=== PATIENT | male | born 1950 | race Caucasian/White ===

== ENCOUNTER 2017-08-08 10:09 | Day surgery (SDC) | payer MEDICARE ==
[~2017-08-08] VITALS: Ht 182.9 cm; Wt 77.0 kg
[2017-08-08] VITALS (13 sets, daily range): BP systolic 117–176; BP diastolic 67–96; PULSE 56–88; RESP 16–19; TEMP 97.6–98.8; O2SAT 96–100
[~2017-08-08 10:09] MED LIST: AMAR2TAB PO; CARD120C4 PO; FERR324T4 PO; HYDR-2768 PO; LANTUSP SQ; LIPI40TA PO; METO50TA PO; NOVOLOGP2 SQ; PRIN20TA2 PO
[2017-08-08] MEDS ORDERED: IOHEXOL 350 MG/ML 100 ML BTL (for Cath Lab) OTHER ONE (10:10)
[2017-08-08] MEDS ORDERED: SODIUM CHLOR 0.9% 1000 ML INJ 1,000 ML IV SCH (11:00)
[2017-08-08] MEDS ORDERED: LANTUS2P SQ (11:02)
[2017-08-08] MEDS ORDERED: METO25TA3 PO (11:02)
[2017-08-08] MEDS ORDERED: POTA10CA PO (11:02)
[2017-08-08 11:08] LABS: AUTOMATED NEUTROPHIL # 9.5 TH/MM3 (1.8-7.7); BASOPHIL # 0.1 TH/MM3 (0-0.2); BASOPHIL % 1.1 % (0.0-2.0); EOSINOPHIL # 0.2 TH/MM3 (0-0.4); EOSINOPHIL % 1.8 % (0.0-4.0); HEMATOCRIT 37.1 % (39.0-51.0); HEMOGLOBIN 12.8 GM/DL (13.0-17.0); LYMPH % 7.7 % (9.0-44.0); LYMPHOCYTE # 0.9 TH/MM3 (1.0-4.8); MEAN CELL VOLUME 95.4 FL (80.0-100.0); MEAN CORPUSCULAR HEMOGLOBIN 32.9 PG (27.0-34.0); MEAN CORPUSCULAR HGB CONC 34.5 % (32.0-36.0); MEAN PLATELET VOLUME 7.9 FL (7.0-11.0); MONO % 5.8 % (0.0-8.0); MONOCYTE # 0.7 TH/MM3 (0-0.9); NEUT % 83.6 % (16.0-70.0); PLATELET COUNT 250 TH/MM3 (150-450); RED BLOOD COUNT 3.89 MIL/MM3 (4.50-5.90); RED CELL DISTRIBUTION WIDTH 13.2 % (11.6-17.2); WHITE BLOOD COUNT 11.4 TH/MM3 (4.0-11.0)
[2017-08-08 11:16] LABS: PROTHROMBIN TIME - PATIENT 9.9 SEC (9.8-11.6)
[2017-08-08 11:23] LABS: BICARBONATE 28.3 MEQ/L (21.0-32.0); CALCIUM 8.9 MG/DL (8.5-10.1); CREATININE 8.72 MG/DL (0.60-1.30)
[2017-08-08] MEDS ORDERED: HEPARIN-NS/PF FLUSH BAG 2,000 ML IV FLUSH ONE (12:41)
[2017-08-08] MEDS ORDERED: MIDAZOLAM HCL 2 MG/2 ML VIAL ONE (13:14)
[2017-08-08] MEDS ORDERED: ASPIRIN 325 MG TAB ONE (14:57)
[2017-08-08] MEDS ORDERED: TICAGRELOR 90 MG TAB PO ONE (14:57)
[2017-08-08] MEDS ORDERED: oxyCODONE/ACETAMINOPHEN 5 MG/325 MG TAB PO PRN (15:30)
[2017-08-08] MEDS ORDERED: oxyCODONE/ACETAMINOPHEN 10 MG/325 MG TAB PO PRN (15:30)
[2017-08-08] MEDS ORDERED: ACETAMINOPHEN 325 MG TAB PO PRN (15:30)
[2017-08-08] MEDS ORDERED: MORPHINE SULFATE 4 MG/ML INJ IV PUSH PRN (15:30)
[2017-08-08] MEDS ORDERED: MISC INFORMATION XX ONE (15:30)
--- NOTE | 2017-08-08 15:31 | CATHPROC ---
Global Locate HIS Report Study Information Study Number Admission Scheduled Start Study Start [id number] Aug 08 2017 10:09AM 08/08/2017 Aug 08 2017 12:46PM Study Type Boyd Service Left and Right Heart Cath Cardiac Catheterization Admit Source Facility Department Other [facility] [place] Physician and Clinical Staff Initial Aditya Hilario Osteopathic Physician José Miguel Otoole RN Osteopathic PhysicianAndrade Haley RN Osteopathic Physician Jerica Sal RN Recorder Fartun Wright,SHANITA TECH2 Scrub Ximena Esteban,RT(R) Procedures Performed Procedure Location (Site) Vessel Name Coronary Angiograms LCA Left Coronary Coronary Angiograms RCA Right Coronary Drug Eluting Inflatio LAD Mid Left Coronary Drug Eluting Inflatio LAD Prox Left Coronary PTCA LAD Mid Left Coronary PTCA LAD Prox Left Coronary Wire insertion Fem Art (right) Femoral Art Equipment Time Cloth Tester Quality Description Size Mfg Part Number Used/Scraped [id number] 12:55 [employer] SWAN JOSEPHINE CATHETER FR 7 Used *[id number] TRANSDUCER, TRUWAVE [id number] 12:55 [employer] * Used W/STOCKCOCK *[id number] TRANSDUCER, TRUWAVE [id number] 12:55 [employer] * Used W/STOCKCOCK *[id number] INTRODUCER SET, 12:55 [employer] FR 5 [id number] *[id number] Used MICROPUNCTURE STIFF [phone] *[id number] 12:55 [employer] PACK, CCL CUSTOM * Used *[id number] 14:20 MEDTRONIC BALLOON, 2.0 X 10MM EUPHORA 10MM Used *[id number] BALLOON, 2.25 X 8MM NC [id number] 14:39 MEDTRONIC 8MM Used EUPHORA *[id number] 13:43 MEDTRONIC JL 4.0 DXTERITY CATHETER FR 5 Used *[id number] 14:30 [employer] STENT, 2.25 12MM ALYSHA 2.25 12MM Used *8858582 [id number] 14:34 [employer] STENT, 2.25 12MM ALYSHA 2.25 12MM Used *[id number] 13:53 MEDTR[employer]IC/AVE EBU 3.5 Z2 GUIDE CATHETER FR 6 Used *[id number] 14:23 [employer]ICAL 30 JOSE INDEFLATOR Used *[id number] 12:55 [employer] WIRE, 3MMJ .035 180CM 180CM Used *[id number] [id number] 12:55 NAMIC MANIFOLD, 4 PORT * Used *[id number] 12:55 [employer]COMED OMNIPAQUE, 350 MG, 150ML 150ML [id number] Used 14:44 [employer]COMED OMNIPAQUE, 350 MG, 150ML 150ML [id number] Used 14:44 [employer]COMED OMNIPAQUE, 350 MG, 150ML 150ML [id number] Used 14:44 NYCOMED OMNIPAQUE, 350 MG, 150ML 150ML [id number] Used [id number] 12:55 [facility] BLANKET,WARM AIR CCL * Used *[id number] [id number] 12:55 TERUMO MEDICAL SHEATH, FR5 TERUMO (10CM) FR 5 Used *[id number] [id number] 13:54 [employer] MEDICAL SHEATH, FR6 TERUMO (10CM) FR 6 Used *[id number] 12:55 TERUMO MEDICAL SHEATH, FR7 TERUMO (10CM) FR 7 Used *[id number] 13:57 [employer] PRIME WIRE, VERRATA 185CM 185CM 60199 *[id number] Used Equipment Model, Serial, Lot Number and Expiration Data Description Model Number Serial Number Lot Number Expiration Date JL 4.0 DXTERITY CATHETER [id number] 05-23-2020 PRIME WIRE, VERRATA 185CM [id number] 07-11-2020 STENT, 2.25 12MM ALYSHA [id number] 03-29-2019 STENT, 2.25 12MM ALYSHA [id number] 04-02-2019 History: Current Medications Medication Dosage/Unit Route Frequency Last Date/Time Taken 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 K-Dur LANTUS History: Risk Factors Family History of Hypertension Dyslipidemia Previous CT Previous Heart Failure Premature CAD Yes Yes No No Yes Prior Valve Prior PCI Prior CABG Surgery No No No Cerebrovascular Peripheral Artery Chronic Lung On Dialysis Diabetes Diabetes Therapy Disease Disease Disease Yes No No No Yes Insulin History: Stress Tests Stress or Imaging Studies Performed Yes Standard Exercise Stress Test No Stress Echo No Stress Test SPECT Stress Test SPECT Result Stress Test SPECT Ischemia Risk/Extent Yes Positive Intermediate Stress Test CMR No Cardiac CTA Coronary Calcium Score No No History: Other Current Smoker Method Quit No Cigarettes 12 Years Ago Labs Hgb (g/dl) Hct (%) WBC (l/cumm) Platelets (thousands) 11.60-17.00 35.00-51.00 4.00-11.00 150.00-450.00 12.8 37.1 11.4 250 Glucose (mg/dl) BUN (mg/dl) Creatinine (mg/dl) BUN:Creatinine (1:x) 74.00-106.00 7.00-18.00 0.50-1.30 10.00-20.00 154 24 8.7 2.8 Na (meq/l) K (meq/l) Cl (meq/l) Ca (mg/dl) 136.00-145.00 3.50-5.10 98.00-107.00 8.50-10.10 136 3.2 28.3 8.9 PT (sec) INR (PTT:PT) 9.80-11.60 0.90-1.10 9.9 1 CPK-MB (ng/ML) 0.50-3.60 Not Drawn Medication Medication Total Dose (Bolus/Oral) Medication Total Dosage/Unit 1% XYLOCAINE 20 mL FENTANYL 50 mcg HEPARIN 5200 units NTG (IC) 200 mcg Medications (Bolus/Oral) Medication Time Given Dosage/Unit Administered By Reason FENTANYL 08/08/2017 1:21:31 PM 50 mcg Fartun Wright 50 mcg FENTANYL given in lab by Fartun Wright INTELLIGENCE OFFICER TECH2 in Right Antecubital via Peripheral IV. Orde red by Aditya Wright 1% XYLOCAINE 08/08/2017 1:22:30 PM 20 mL Aditya Wright 20 mL 1% XYLOCAINE given in lab by Aditya Wright in Right Groin via Subcutaneous. Ordered by Aditya Felix HEPARIN 08/08/2017 1:55:02 PM 5200 units Aditya Wright 5200 units HEPARIN given in lab by Aditya Wright in Left Antecubital via Peripheral IV. Ordered by Aditya Wright NTG (IC) 08/08/2017 2:47:26 PM 200 mcg Aditya Wright 200 mcg NTG (IC) given in lab by Aditya Wright via Intra-coronary. Ordered by Aditya Wright Medication (Drip) Medication Time Given Dosage/Unit Concentration/Unit Diluent (ml) Solution IV Solutions 08/08/2017 12:55:27 PM 0 mL (IV) 500 NaCl .9 Patient arrived on IV Solutions in Left Antecubital via Peripheral IV. Pump/Drip Flow = 20 ml/hr chris carter NaCl .9. Initial Case Assessment Cardiovascular HR Rhythm NIBP Chest Pain 60 sr/pac's 170/97 0 Circulatory - Right Pulses Dorsalis Pedis Femoral 1 3 Scale (0,1,2,3,4,d) Circulatory - Left Pulses Dorsalis Pedis Femoral 1 3 Scale (0,1,2,3,4,d) Neurological State Oriented to time-place- Alert Moves all extremities person Respiration - General Respiration Rate SpO2 (%) (B/min) 18 99 Final Case Assessment Cardiovascular HR Rhythm NIBP Chest Pain 60 sr/pac's 170/97 0 Circulatory - Right Pulses Dorsalis Pedis Femoral 1 3 Scale (0,1,2,3,4,d) Circulatory - Left Pulses Dorsalis Pedis Femoral 1 3 Scale (0,1,2,3,4,d) Neurological State Oriented to time-place- Alert Moves all extremities person Respiration - General Respiration Rate SpO2 (%) (B/min) 18 99 Chronological Log Time Study Chronological Log 12:51:52 Patient arrived via Bed. 12:51:58 Patient Name, D.O.B, / Armband Verified By R.N. 12:54:03 Consent signed by the physician and the patient and verified by the [place] staff. 12:54:04 Pre-op and post- op instructions given; patient acknowledges understanding of instructions. 12:54:05 Verbal Stimulation=2 Physical Stimulation=2 Airway=2 Respiration=2 TOTAL=8. (0=absent, 1=li mited, 2=present) 12:54:06 Presedation assessment performed by [place] RN. 12:54:09 Patient has been NPO for More than 6Hrs. 12:54:11 Skin Breakdown-none 12:54:12 Sergio Prominences Protected 12:54:15 A # 20 IV was noted in the Antecubital (left). Grade = patent 12:55:27 Patient arrived on IV Solutions in Left Antecubital via Peripheral IV. Pump/Drip Flow = 20 ml/hr using NaCl .9. Vitals capture started with the following parameters, Patient=Adult, Interval=5 min, Initial Pr aqlrmm=846 mmHg, 13:11:20 Deflation Rate=5 mmHg, Cuff placed on Unknown 13::58 History and physical on the chart or being dictated. Assessment: Initial Case, HR=60 BPM, Rhythm=sr/pac's, VQQN=741/97 mmhg, Chest Pain=0 Right Pulses: Joshua Ped=1, Femoral=3 13:11:58 Left Pulses: Joshua Ped=1, Femoral=3 Neurological: State=Alert, Ox3, WALLER Respiration: Resp=18 B/min, SpO2=99 % 13:12:06 Bilateral groins prepped with 2% chlorhexidine, and draped after a 3 minute waiting time. 13:12:12 MD paged 13:12:44 HR=60 bpm, ENKR=420/97 mmhg, SpO2=99.0 %, Resp=18 B/min 13:13:07 Reference ECG taken 13:15:25 Pressure channel 1 zeroed. 13:15:29 MD arrived. 13:17:00 HR=61 bpm, QHIA=553/94 mmhg, SpO2=99.0 %, Resp=16 B/min Time Out. Correct patient, correct procedure, correct physician, power injector not loaded with contrast with surgical 13:20:30 team present. Time Out Concurred by MD and individual staff in procedure. 50 mcg FENTANYL given in lab by Fartun Wright RCIS TECH2 in Right Antecubital via Peripheral IV . Ordered by Kyle 13::31 Aditya Calderon ::28 Case Start 20 mL 1% XYLOCAINE given in lab by Aditya Wright in Right Groin via Subcutaneous. Ordered by Kyle, :30 Aditya Calderon 13:22:47 HR=62 bpm, PIHZ=937/88 mmhg, SpO2=98.0 %, Resp=15 B/min 13:27:01 HR=60 bpm, KQMK=998/91 mmhg, SpO2=98.0 %, Resp=12 B/min 13:28:02 Access site was Right Femoral Artery. A INTRODUCER SET, MICROPUNCTURE STIFF FR 5 was advanced into the Fem Art (right) using the Perc utaneous 13:28:24 technique. A SHEATH, FR5 TERUMO (10CM) FR 5 was exchanged in the Fem Art (right). This was necessary in or richy to 13:28:40 accomodate a larger catheter. 13:29:46 Access site was Right Femoral Vein. A INTRODUCER SET, MICROPUNCTURE STIFF FR 5 was advanced into the Fem Vein (right) using the Per cutaneous 13:29:51 technique. A SHEATH, FR7 TERUMO (10CM) FR 7 was exchanged in the Fem Vein (right). This was necessary in o rder to 13:30:08 accomodate a larger catheter. 13:31:21 An injection in the Fem Art (right) was made through the SHEATH, FR5 TERUMO (10CM) FR 5. 13:31:58 HR=67 bpm, DGZR=940/91 mmhg, SpO2=99.0 %, Resp=12 B/min 13:32:04 A SWAN JOSEPHINE CATHETER FR 7 was inserted via Fem Vein (right) Recorded Pressure: PCW, HR=62, Condition=Condition 1 13:33:54 (Pulmonary Capillary Wedge) PCW Recorded Pressure: MPA, HR=70, Condition=Condition 1 13:35:12 (Main Pulmonary Artery) MPA 13:35:34 Saturation: Site=PA (Pulmonary Artery) , O2=66.6 %, Hgb=12.8 gm/dl, Condition=Condition 1. Used in calculation. 13:36:11 Saturation: Site=Ao (Aorta) , O2=96.9 %, Hgb=12.8 gm/dl, Condition=Condition 1. Used in dar culation. Recorded Pressure: RV, HR=73, Condition=Condition 1 13:36:38 (Right Ventricle) RV 13:36:57 HR=60 bpm, PXGA=718/93 mmhg, SpO2=98.0 %, Resp=13 B/min Recorded Pressure: RA, HR=70, Condition=Condition 1 13:37:08 (Right Atrium) RA 13:37:24 Rush Josephine Catheter Removed A JR 4.0 INFINITI CATHETER FR 5 was advanced over a wire. OMNIPAQUE, 350 MG, 150ML 150ML was us ed for 13:39:31 injections. Recorded Pressure: LV, HR=69, Condition=Condition 1 13:39:49 (Left Ventricle) LV 198/7/13 Recorded Pressure: LV, Ao, HR=59, Condition=Condition 1 13:40:13 (Left Ventricle) LV 184/2/9, (Aorta) Ao 181/58/111 13:42:00 HR=62 bpm, CFON=017/90 mmhg, SpO2=99.0 %, Resp=15 B/min 13:42:37 The RCA was injected and visualized at various angles. OMNIPAQUE, 350 MG, 150ML 150ML used . After removing the current catheter a JL 4.0 DXTERITY CATHETER FR 5 was advanced over a WIRE, 3 MMJ .035 180CM 13:43:12 180CM. 13:45:21 The LCA was injected and visualized at various angles. OMNIPAQUE, 350 MG, 150ML 150ML used . 13:47:05 HR=76 bpm, PZKE=200/83 mmhg, SpO2=99.0 %, Resp=14 B/min 13:52:02 HR=75 bpm, RVBL=819/91 mmhg, SpO2=98.0 %, Resp=16 B/min 13:53:10 Catheter was removed 5200 units HEPARIN given in lab by Aditya Wright in Left Antecubital via Peripheral IV. O rdered by Kyle 13:55:02 Aditya Carter. A SHEATH, FR6 TERUMO (10CM) FR 6 was exchanged in the Fem Art (right). This was necessary in or richy to 13:55:18 accomodate a larger catheter. A EBU 3.5 Z2 GUIDE CATHETER FR 6 was advanced over a wire. OMNIPAQUE, 350 MG, 150ML 150ML was u sed for 13:56:32 injections. 13:57:03 HR=75 bpm, OQYT=036/82 mmhg, SpO2=98.0 %, Resp=19 B/min 14:02:04 HR=67 bpm, HXGC=655/88 mmhg, SpO2=98.0 %, Resp=16 B/min 14:02:09 A PRIME WIRE, VERRATA 185CM 185CM was inserted via Fem Art (right). 14:07:01 HR=70 bpm, ZTSA=180/91 mmhg, SpO2=98.0 %, Resp=17 B/min 14:12:06 HR=77 bpm, RLVD=930/83 mmhg, SpO2=98.0 %, Resp=13 B/min 14:12:44 Flow Wire was was placed in the LAD Mid. The IFR measures 0.65 Percent. 14:17:05 HR=67 bpm, THAH=799/88 mmhg, SpO2=98.0 %, Resp=10 B/min 14:17:19 Activated Clotting Time Drawn 14:21:29 A BALLOON, 2.0 X 10MM EUPHORA 10MM was inserted over PRIME WIRE, VERRATA 185CM 185CM via th e LAD Mid. 14:22:04 HR=68 bpm, GFKF=100/90 mmhg, SpO2=97.0 %, Resp=16 B/min A BALLOON, 2.0 X 10MM EUPHORA 10MM over a PRIME WIRE, VERRATA 185CM 185CM in the LAD Mid was in flated 14:22:48 using a 30 JOSE INDEFLATOR at 14 jose for 30 sec. 14:23:14 ACT (Normal Range 90-180) = 324 A BALLOON, 2.0 X 10MM EUPHORA 10MM over a PRIME WIRE, VERRATA 185CM 185CM in the LAD Mid was in flated 14:25:17 using a 30 JOSE INDEFLATOR at 12 jose for 25 sec. 14:25:57 Balloon Removed. 14:27:05 HR=66 bpm, NIWO=099/95 mmhg, SpO2=97.0 %, Resp=17 B/min A STENT, 2.25 12MM ALYSHA 2.25 12MM was advanced through a EBU 3.5 Z2 GUIDE CATHETER FR 6 over a PRIME 14:29:21 WIRE, VERRATA 185CM 185CM. 14:32:08 HR=73 bpm, KBZB=388/82 mmhg, SpO2=97.0 %, Resp=18 B/min A STENT, 2.25 12MM ALYSHA 2.25 12MM was deployed using a 30 JOSE INDEFLATOR at 14 atmospheres for 30 seconds 14:32:15 in the LAD Mid. 14:33:48 Delivery device removed A STENT, 2.25 12MM ALYSHA 2.25 12MM was advanced through a EBU 3.5 Z2 GUIDE CATHETER FR 6 over a PRIME 14:34:39 WIRE, VERRATA 185CM 185CM. A STENT, 2.25 12MM ALYSHA 2.25 12MM was deployed using a 30 JOSE INDEFLATOR at 14 atmospheres for 30 seconds 14:36:21 in the LAD Prox. 14:37:05 HR=72 bpm, GSOM=671/80 mmhg, SpO2=97.0 %, Resp=17 B/min 14:38:11 Delivery device removed 14:38:21 A BALLOON, 2.25 X 8MM NC EUPHORA 8MM was inserted over PRIME WIRE, VERRATA 185CM 185CM via the LAD Mid. 14:38:29 Patient complaining of chest pain 5 14:42:37 HR=71 bpm, AKOV=800/91 mmhg, SpO2=95.0 %, Resp=17 B/min A BALLOON, 2.25 X 8MM NC EUPHORA 8MM over a PRIME WIRE, VERRATA 185CM 185CM in the LAD Mid was inflated 14:43:40 using a 30 JOSE INDEFLATOR at 12 jose for 10 sec. A BALLOON, 2.25 X 8MM NC EUPHORA 8MM over a PRIME WIRE, VERRATA 185CM 185CM in the LAD Mid was inflated 14:44:32 using a 30 JOSE INDEFLATOR at 18 jose for 20 sec. A BALLOON, 2.25 X 8MM NC EUPHORA 8MM over a PRIME WIRE, VERRATA 185CM 185CM in the LAD Prox was inflated 14:45:27 using a 30 JOSE INDEFLATOR at 20 jose for 20 sec. A BALLOON, 2.25 X 8MM NC EUPHORA 8MM over a PRIME WIRE, VERRATA 185CM 185CM in the LAD Prox was inflated 14:46:08 using a 30 JOSE INDEFLATOR at 20 jose for 15 sec. 14:46:34 Balloon Removed. 14:47:05 HR=71 bpm, TWTL=647/86 mmhg, SpO2=96.0 %, Resp=17 B/min 14:47:26 200 mcg NTG (IC) given in lab by Aditya Wright via Intra-coronary. Ordered by Aditya Felix. 14:50:38 Wire removed 14:51:02 Catheter was removed 14:51:44 Case End 14:52:04 HR=85 bpm, DDZL=585/77 mmhg, SpO2=95.0 %, Resp=13 B/min Assessment: Final Case, HR=60 BPM, Rhythm=sr/pac's, BMPQ=340/97 mmhg, Chest Pain=0 Right Pulses: Joshua Ped=1, Femoral=3 14:52:08 Left Pulses: Joshua Ped=1, Femoral=3 Neurological: State=Alert, Ox3, WALLER Respiration: Resp=18 B/min, SpO2=99 % 14:52:24 Catheter(s) removed without difficulty 14:52:26 In the Fem Art (right) the SHEATH, FR6 TERUMO (10CM) FR [address] by Shelby Esteban RT(R). 14:52:31 No case complications noted. 14:52:32 Cine recording checked. 14:52:34 Bedside Report will be given. 14:52:37 Implantable Device card placed in patient's chart. 14:52:41 In the Fem Vein (right) the SHEATH, FR7 TERUMO (10CM) FR [address] by Ximena Esteban RT(R). 14:52:58 A Left and Right Heart Cath was performed. 14:54:30 Sterile dressing applied to site 14:56:57 VEYQ=730/88 mmhg, SpO2=95.0 % 14:58:38 Patient voiced chest pain subsided 15:02:38 Patient moved to BED 15:03:55 Patient transported to [facility] End Study - Contrast Media Used In Study Contrast Total Opened (mL) Total Used (mL) Total Wasted (mL) Omnipaque 275 275 0 End Study - Maximum Contrast Load Max Contrast Load (mL) 43.5 End Study - Radiation Exposure Fluoro Time (minutes) 19.8 End Study - Patient Disposition Complications Transferred To Interventional Outcome No Telemetry Bed successful
[2017-08-08] MEDS ORDERED: hydrALAZINE HCL 20 MG/ML VIAL IV PRN (16:30)
[2017-08-08] MEDS ORDERED: SODIUM CHLORIDE 0.9% FLUSH 10 ML FLUSH IV FLUSH PRN (17:30)
[2017-08-08] MEDS ORDERED: HEPARIN SODIUM - IV 10,000 UNITS/10 ML VIAL XX PRN (17:30)
[2017-08-08] MEDS ORDERED: LABETALOL HCL 100 MG/20 ML VIAL IV ONE (17:30)
[2017-08-08] MEDS ORDERED: POTASSIUM CHLORIDE 20 MEQ CONTROLLED RELEASE TAB PO ONE (18:45)
[2017-08-08] MEDS ORDERED: hydrALAZINE HCL 20 MG/ML VIAL IV ONE (19:15)
--- NOTE | 2017-08-08 20:03 | MB ---
cc: Neymar Thomas MD, Abdul Q MD DATE: 08/08/2017 REASON FOR CONSULTATION: End-stage renal disease on peritoneal dialysis for management. HISTORY OF PRESENT ILLNESS: This is a 67-year-old male with a past medical history of end-stage renal disease on peritoneal dialysis for the last [address] Fernandes with a history of ischemic heart disease, diabetes mellitus, hypertension, chronic anemia, hyperlipidemia who was admitted with abnormal stress test. I was called to see the patient for the management of dialysis. He has been on peritoneal dialysis for the last 4 years. He has been following with Dr. Lucio and he had his peritoneal dialysis done last night and came as an outpatient for cardiac cath after an abnormal stress test. The patient had procedure done and he was kept overnight here for observation. The patient denies any shortness of breath or chest pain. He is feeling hungry and wants to eat. No abdominal pain. No history of diarrhea. Denies any cloudiness of his fluid. There is no history of constipation. PAST MEDICAL HISTORY: Hypertension, diabetes mellitus, ischemic heart disease, chronic anemia, peripheral neuropathy, hyperlipidemia, end-stage renal disease on peritoneal dialysis. PAST SURGICAL HISTORY: History of PD catheter placement, laser eye surgery, tonsillectomy. REVIEW OF SYSTEMS: Denies any dizziness or blurring of vision. He has no shortness of breath, no chest pain, no palpitations, no nausea or vomiting. No abdominal pain. No history of diarrhea. SOCIAL HISTORY: The patient has a history of smoking, smoked for 30-40 years. There is no history of heavy alcoholism. FAMILY HISTORY: Positive for cardiac disease and stroke on the father's side. ALLERGIES: NO KNOWN ALLERGIES. MEDICATIONS: Currently, he is on: 1. Brilinta 90 mg b.i.d. 2. Aspirin 81 mg once a day. 3. Lopressor 25 mg daily. 4. Lipitor 40 mg at bedtime. 5. Insulin Detemir 20 units subcu at bedtime. 6. Percocet 5/325 as needed. 7. Hydralazine p.r.n. 10 mg q. 6 hours. PHYSICAL EXAMINATION: GENERAL: The patient is awake and alert. He is not in acute distress. VITAL SIGNS: Last blood pressure is 173/96, temperature is 97.6, oxygen saturation is 97% on room air. HEENT: Pupils are mid constricted. Nonicteric sclerae. Conjunctivae are pale. NECK: Supple. JVD is not elevated. LUNGS: Bilateral good air entry with occasional wheezing. HEART: S1, S2. Regular rhythm. ABDOMEN: Distended, soft, lax . EXTREMITIES: He has mild pedal edema. LABORATORY DATA: WBC count is 8.4, hemoglobin 10.8, platelet count of 215, neutrophils 83.6%. Sodium 136, potassium 3.2, chloride 99, bicarb 28.3, BUN 24, creatinine was 8.7, glucose 154. is 8.9. INR 1.0. IMAGING STUDIES: The patient had no recent imaging studies done. ASSESSMENT AND PLAN: 1. Ischemic heart disease post cardiac catheterization. 2. End-stage renal disease on peritoneal dialysis. 3. Hypertension. 4. Diabetes mellitus. 5. History of anemia. 6. Hyperlipidemia. The patient has been on peritoneal dialysis. He has been doing his dialysis regularly and he had done it last night. His potassium is 3.2. I will give him 1 dose by mouth and we need to resume the peritoneal dialysis but the patient is refusing. He wants to do it by himself when he goes home tomorrow. He was told by the belt weaver that possibly he will be discharged in the morning. He is not in fluid overload status and potassium is on the lower side, so there is no acute urgent indication to dialyze tonight. I discussed with the patient that he can hook himself while he is here. He feels tired and he does not want any other nurse to do it and he is requesting to hold it for tonight. Medically, there is no urgent need for dialysis so we can hold it for tonight and he can resume when he goes back tomorrow to his home. Thank you for the consultation. I will follow the patient while he is in the hospital. MD GEORGIA Bustos//fausto , 06:23 PM , 07:02 PM
[2017-08-08] MEDS ORDERED: INSULIN DETEMIR 100 UNITS/ML VIAL SQ SCH (21:00)
[2017-08-08] MEDS ORDERED: ATORVASTATIN 10 MG TAB PO SCH (21:00)
[2017-08-09] VITALS (12 sets, daily range): BP systolic 133–166; BP diastolic 71–86; PULSE 55–108; RESP 16–18; TEMP 97.7–98.5; O2SAT 97–99
[2017-08-09 06:34] LABS: AUTOMATED NEUTROPHIL # 7.9 TH/MM3 (1.8-7.7); BASOPHIL # 0.1 TH/MM3 (0-0.2); BASOPHIL % 1.1 % (0.0-2.0); EOSINOPHIL # 0.2 TH/MM3 (0-0.4); EOSINOPHIL % 1.7 % (0.0-4.0); HEMATOCRIT 28.7 % (39.0-51.0); HEMOGLOBIN 10.3 GM/DL (13.0-17.0); LYMPH % 6.7 % (9.0-44.0); LYMPHOCYTE # 0.6 TH/MM3 (1.0-4.8); MEAN CELL VOLUME 95.2 FL (80.0-100.0); MEAN CORPUSCULAR HEMOGLOBIN 34.1 PG (27.0-34.0); MEAN CORPUSCULAR HGB CONC 35.8 % (32.0-36.0); MEAN PLATELET VOLUME 7.8 FL (7.0-11.0); MONO % 6.1 % (0.0-8.0); MONOCYTE # 0.6 TH/MM3 (0-0.9); NEUT % 84.4 % (16.0-70.0); PLATELET COUNT 174 TH/MM3 (150-450); RED BLOOD COUNT 3.02 MIL/MM3 (4.50-5.90); RED CELL DISTRIBUTION WIDTH 13.4 % (11.6-17.2); WHITE BLOOD COUNT 9.3 TH/MM3 (4.0-11.0)
[2017-08-09 07:23] LABS: BICARBONATE 26.7 MEQ/L (21.0-32.0); CALCIUM 7.7 MG/DL (8.5-10.1); CREATININE 9.96 MG/DL (0.60-1.30)
[2017-08-09] MEDS ORDERED: ASPIRIN 81 MG CHEW TAB PO SCH (09:00)
[2017-08-09] MEDS ORDERED: TICAGRELOR 90 MG TAB PO SCH (09:00)
[2017-08-09] MEDS ORDERED: METOPROLOL TARTRATE 25 MG TAB PO SCH (09:00)
--- NOTE | 2017-08-09 09:16 | MA ---
cc: Aditya Wright DO DATE: 08/08/2017 PROCEDURE PERFORMED: Left heart catheterization, right heart catheterization, coronary angiogram, IFR LAD, Jan drug-eluting stent x 2 (2.25 x 12, 2.25 x 12) to the proximal and mid LAD. PREPROCEDURE DIAGNOSIS: Abnormal stress test for kidney transplant. POSTPROCEDURE DIAGNOSIS: Coronary artery disease, status post Jan drug-eluting stent x 2 (2.25 x 12, 2.25 x 12) to the mid and proximal left anterior descending. MEDICATIONS: Fentanyl 50 mcg, heparin 5200 units, nitroglycerine 200 mcg, aspirin 325 mg, Brilinta 180 mg. CONTRAST USED: 275 mL. FLUOROSCOPY: 19.8 minutes. MODERATE SEDATION: 0 minutes. ESTIMATED BLOOD LOSS: 10 mL. PROCEDURAL SUMMARY: Tony Keen is a pleasant 67-year-old male who sees my partner, Dr. Rehman, in the office and underwent stress testing for consideration of kidney transplant. This was found to be abnormal and so he was recommended cardiac catheterization. Risks, benefits and alternatives were explained to him and he consented as such. He was brought to the lab and prepped in the usual sterile fashion. The right femoral artery was accessed using a modified Seldinger technique and placement of a 5-Belgian sheath. Right femoral vein was accessed using a modified Seldinger technique and placement of a 7-Belgian sheath. Both were easily aspirated and flushed. A Alviso-Jessica catheter was advanced to a wedge position and oxygen saturations as well as pressures were done in a standard fashion upon pullback throughout the heart. Alviso-Jessica catheter was removed. A JR4 was advanced over a J-wire to the ascending aorta and across the aortic valve for measurement of left ventricular pressure. This was pulled back across the aortic valve, showing no significant gradient of aortic stenosis. JR4 was used for selective angiography of the right coronary artery system. This is exchanged out for a JL4, which was used for selective angiography of the left coronary artery system. Please see notes below for intervention. FINDINGS: Left main normal size vessel with 10% disease. It bifurcates into an LAD and circumflex. LAD overall small to moderate sized vessel. It is diffusely diseased with a 60-70% lesion in the proximal and mid portion. It gives off one diagonal, which is overall small at around 1.5 mm, with an 80% lesion in the mid portion. Left circumflex normal size vessel with 20% disease throughout the proximal and mid portion. It gives off 2 obtuse marginals, the first one being large, with no significant disease and the second one being small at around 1.5 mm, with a 50% lesion noted. RCA 100% occluded in the mid portion. Distally, the RCA is supplied by collaterals from the left coronary artery system. HEMODYNAMICS: RA 7. RV 33/5, RV EDP 7. PA 27/13, mean PA 19. Wedge 13. LVEDP 9. Cardiac output 4.7. Cardiac index 2.4. INTERVENTION: Because of the significance of disease noted in the LAD, I felt that this needed to be further investigated and this may be why he has ischemia in the inferior portion, as this does supply significant collaterals to that area. An EBU 3.5 guide was engaged in the left main. The patient was given heparin as an anticoagulant. A Berrata wire was advanced into the distal LAD. IFR was 0.67, showing significant physiologic stenosis. At this time, I spoke to Mr. Keen about consideration of bare metal stenting versus drug-eluting stents. My overall concern is that stents will be small in diameter and with his history of end-stage renal disease, he has a high risk of restenosis of a bare metal stent. He states that he is willing to put off his surgery and okay with drug-eluting stents placed. A compliant balloon (2 x 10) was used to predilate the 2 lesions. An Onxy drug-eluting stent (2.25 x 12) was then placed over the lesion in the mid portion and inflated. An Jan drug-eluting stent (2.25 x 12) was placed over the lesion in the proximal portion and inflated. Both stents were postdilated with a noncompliant balloon (2.25 x 8). Final angiogram shows well opposed stents, with no perforations or dissections. The wire and guide were removed. Sheaths were sutured in place with a plan to remove once an ACT value was appropriate. The patient was given aspirin 325 mg, as well as Brilinta 180 mg. 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 IMPRESSION: 1. Abnormal stress test. 2. Coronary artery disease as above, status post Jan drug-eluting stent (2.25 x 12, 2.25 x 12) to the proximal and mid left anterior descending. 3. End-stage renal disease, on peritoneal dialysis. RECOMMENDATIONS: 1. Mr. Keen appears to have coronary artery disease as above and underwent stenting of his LAD in the mid and proximal portion. He will be placed on aspirin and Brilinta therapy. 2. He will have to hold off on his transplant for some time due to the drug-eluting stent placement. 3. He does have further disease noted in the diagonal, although this is an overall small vessel and supplying a small amount of myocardium. Overall, I would attempt to treat this medically as best as possible, as my concern is that if anything happened during balloon angioplasty, we would be unable to stent this. 4. He will be watched overnight. If stable, discharge in the morning. 5. He will continue on his beta chiol therapy. 6. I will plan to add statin therapy to his regimen. 7. For now, we will not place him on RADHA inhibitor therapy with his end-stage renal disease. This can be reevaluated outpatient by his manager biologics. Thank you for allowing me to see Tony Keen. If there are any questions, please do not hesitate to call. DO WON Andrade , 11:47 PM , 12:25 AM
[2017-08-09] MEDS ORDERED: BRIL90TA PO (11:55)
[2017-08-09] MEDS ORDERED: LIPI10TA PO (11:55)
[2017-08-09] MEDS ORDERED: ASPI81 PO (11:55)
--- NOTE | 2017-08-09 11:58 | HHI.NPPN ---
Subjective Renal Failure: End Stage Renal Disease Additional Remarks Patient is resting comfortably. Plans for discharge today. S/P stents (Zayra Gilbert) Review of Systems Respiratory Respiratory Remarks Denies any SOB (Zayra Gilbert) Cardiovascular Cardiac Remarks Denies any CP (Zayra Gilbert) Gastrointestinal GI Remarks Denies any abdominal pain (Zayra Gilbert) Objective Data Data Vital Signs Date Time Temp Pulse Resp B/P (MAP) Pulse Ox O2 Delivery O2 Flow Rate FiO2 08/09/17 11:00 98.1 61 16 135/86 (102) 97 08/09/17 11:00 108 08/09/17 10:00 66 08/09/17 09:00 58 08/09/17 08:00 56 08/09/17 07:00 97.7 60 18 166/72 (103) 99 08/09/17 07:00 56 08/09/17 06:00 58 08/09/17 05:00 55 08/09/17 04:00 60 08/09/17 03:00 64 08/09/17 03:00 98.5 64 16 133/71 (91) 99 08/09/17 02:00 58 08/09/17 01:00 57 08/09/17 00:00 61 08/08/17 23:00 63 08/08/17 23:00 98.8 63 16 148/67 (94) 96 08/08/17 22:00 64 08/08/17 21:00 58 08/08/17 20:00 60 08/08/17 19:03 176/83 (114) 08/08/17 19:00 98.4 66 16 152/70 (97) 98 08/08/17 19:00 66 08/08/17 18:00 56 08/08/17 17:00 64 08/08/17 16:00 68 08/08/17 15:37 97.6 58 16 173/96 (121) 97 08/08/17 15:24 97.6 58 16 173/96 (121) 97 08/08/17 15:00 65 (Zayra Gilbert) -: 08/09/17 0535 08/09/17 0535 Tubes & Lines Comment PD cath (Zayra Gilbert) Physical Exam General Appearance: No Acute Distress, Comfortable (Zayra Gilbert) Pulmonary Resp Exam: Clear Bilaterally, Breath Sounds Equal, No Distress (Zayra Gilbert) Cardiology CV Exam: Regular, Normal Sinus Rhythm (Zayra Gilbert) Gastrointestinal/Abdomen GI Exam: Soft, Non-Tender, Bowel Sounds Present (Zayra Gilbert) Genitourinary Exam: Flank Non-Tender (Zayra Gilbert) Integumentary Skin Exam: Clear, Warm, Dry (Zayra Gilbert) Extremeties Extremities Exam: No Edema (Zayra Gilbert) Neurologic Neuro Exam: Alert, Awake, Oriented (Zayra Gilbert) Psychiatric Psych Exam: Appropriate Responses (Zayra Gilbert) Assessment/Plan Assessment Summary: End Stage Renal Disease Problem List: (1) ESRD (end stage renal disease) on dialysis ICD Codes: N18.6 - End stage renal disease; Z99.2 - Dependence on renal dialysis Status: Acute Plan: ESRD on PD nightly followed by Dr. Moncada Plans for discharge home today and PD will be done today when patient gets home. Will be followed by Dr. Moncada outpatient (Zayra Gilbert) Problem List: (1) ESRD (end stage renal disease) on dialysis ICD Codes: N18.6 - End stage renal disease; Z99.2 - Dependence on renal dialysis Status: Acute Plan: ESRD on PD nightly followed by Dr. Lucio Plans for discharge home today and PD will be done today when patient gets home. Will be followed by Dr. Lucio outpatient To follow with Dr. Lucio, and to restart PD at home. (Coni Thomas MD) Zayra Gilbert Aug 09, 2017 11:58 Coni Thomas MD Aug 09, 2017 18:05
--- NOTE | 2017-08-09 13:36 | EKG ---
Date Performed: 08/08/2017 Time Performed: 11:04:48 PTAGE: 67 years EKG: Normal Sinus rhythm with wenckebach AV block The R-wave progression has improved from the prior tracing. The wenckebach replaces the 1st degree AV block from the prior tracing. Abnormal ECG PREVIOUS TRACING : 02/08/2010 10.08 DOCTOR: Edmond Borrego Interpretating Date/Time 08/09/2017 13:35:28
--- NOTE | 2017-08-09 23:39 | PD.CARD.PN ---
Subjective Subjective Remarks Please see other note... this is a duplicate note Objective Vital Signs / I&O Vital Signs Date Time Temp Pulse Resp B/P (MAP) Pulse Ox O2 Delivery O2 Flow Rate FiO2 08/09/17 11:00 98.1 61 16 135/86 (102) 97 08/09/17 11:00 108 08/09/17 10:00 66 08/09/17 09:00 58 08/09/17 08:00 56 08/09/17 07:00 97.7 60 18 166/72 (103) 99 08/09/17 07:00 56 08/09/17 06:00 58 08/09/17 05:00 55 08/09/17 04:00 60 08/09/17 03:00 64 08/09/17 03:00 98.5 64 16 133/71 (91) 99 08/09/17 02:00 58 08/09/17 01:00 57 08/09/17 00:00 61 I/O 08/09/17 08/09/17 08/09/17 08/10/17 08/10/17 08/10/17 07:00 15:00 23:00 07:00 15:00 23:00 Intake Total 480 ml Balance 480 ml Intake Oral 480 ml # Bowel Movements 1 Laboratory Laboratory Tests Test 08/09/17 05:35 White Blood Count 9.3 TH/MM3 Red Blood Count 3.02 MIL/MM3 Hemoglobin 10.3 GM/DL Hematocrit 28.7 % Mean Corpuscular Volume 95.2 FL Mean Corpuscular Hemoglobin 34.1 PG Mean Corpuscular Hemoglobin Concent 35.8 % Red Cell Distribution Width 13.4 % Platelet Count 174 TH/MM3 Mean Platelet Volume 7.8 FL Neutrophils (%) (Auto) 84.4 % Lymphocytes (%) (Auto) 6.7 % Monocytes (%) (Auto) 6.1 % Eosinophils (%) (Auto) 1.7 % Basophils (%) (Auto) 1.1 % Neutrophils # (Auto) 7.9 TH/MM3 Lymphocytes # (Auto) 0.6 TH/MM3 Monocytes # (Auto) 0.6 TH/MM3 Eosinophils # (Auto) 0.2 TH/MM3 Basophils # (Auto) 0.1 TH/MM3 CBC Comment DIFF FINAL Differential Comment Blood Urea Nitrogen 29 MG/DL Creatinine 9.96 MG/DL Random Glucose 115 MG/DL Calcium Level 7.7 MG/DL Sodium Level 137 MEQ/L Potassium Level 3.6 MEQ/L Chloride Level 101 MEQ/L Carbon Dioxide Level 26.7 MEQ/L Anion Gap 9 MEQ/L Estimat Glomerular Filtration Rate 5 ML/MIN Aditya Wright DO Aug 09, 2017 23:39
--- NOTE | 2017-08-09 23:52 | PD.CARD.PN ---
Subjective Subjective Remarks Patient was seen this morning, late entry note No complaints No chest pain/SOB Up and ambulating Objective Vital Signs / I&O Vital Signs Date Time Temp Pulse Resp B/P (MAP) Pulse Ox O2 Delivery O2 Flow Rate FiO2 08/09/17 11:00 98.1 61 16 135/86 (102) 97 08/09/17 11:00 108 08/09/17 10:00 66 08/09/17 09:00 58 08/09/17 08:00 56 08/09/17 07:00 97.7 60 18 166/72 (103) 99 08/09/17 07:00 56 08/09/17 06:00 58 08/09/17 05:00 55 08/09/17 04:00 60 08/09/17 03:00 64 08/09/17 03:00 98.5 64 16 133/71 (91) 99 08/09/17 02:00 58 08/09/17 01:00 57 08/09/17 00:00 61 I/O 08/09/17 08/09/17 08/09/17 08/10/17 08/10/17 08/10/17 07:00 15:00 23:00 07:00 15:00 23:00 Intake Total 480 ml Balance 480 ml Intake Oral 480 ml # Bowel Movements 1 Physical Exam GENERAL: NAD, AAOx3 SKIN: Warm and dry. HEAD: Atraumatic. Normocephalic. EYES: Pupils equal and round. No scleral icterus. No injection or drainage. ENT: No nasal bleeding or discharge. Mucous membranes pink and moist. NECK: Trachea midline. No JVD. CARDIOVASCULAR: Regular rate and rhythm. RESPIRATORY: No accessory muscle use. Clear to auscultation. Breath sounds equal bilaterally. GASTROINTESTINAL: Abdomen soft, non-tender, nondistended. Hepatic and splenic margins not palpable. MUSCULOSKELETAL: Extremities without clubbing, cyanosis, or edema. No obvious deformities. Right femoral no hematoma, distal pulses intact NEUROLOGICAL: Awake and alert. No obvious cranial nerve deficits. Motor grossly within normal limits. Five out of 5 muscle strength in the arms and legs. Normal speech. PSYCHIATRIC: Appropriate mood and affect; insight and judgment normal. Laboratory Laboratory Tests Test 08/09/17 05:35 White Blood Count 9.3 TH/MM3 Red Blood Count 3.02 MIL/MM3 Hemoglobin 10.3 GM/DL Hematocrit 28.7 % Mean Corpuscular Volume 95.2 FL Mean Corpuscular Hemoglobin 34.1 PG Mean Corpuscular Hemoglobin Concent 35.8 % Red Cell Distribution Width 13.4 % Platelet Count 174 TH/MM3 Mean Platelet Volume 7.8 FL Neutrophils (%) (Auto) 84.4 % Lymphocytes (%) (Auto) 6.7 % Monocytes (%) (Auto) 6.1 % Eosinophils (%) (Auto) 1.7 % Basophils (%) (Auto) 1.1 % Neutrophils # (Auto) 7.9 TH/MM3 Lymphocytes # (Auto) 0.6 TH/MM3 Monocytes # (Auto) 0.6 TH/MM3 Eosinophils # (Auto) 0.2 TH/MM3 Basophils # (Auto) 0.1 TH/MM3 CBC Comment DIFF FINAL Differential Comment Blood Urea Nitrogen 29 MG/DL Creatinine 9.96 MG/DL Random Glucose 115 MG/DL Calcium Level 7.7 MG/DL Sodium Level 137 MEQ/L Potassium Level 3.6 MEQ/L Chloride Level 101 MEQ/L Carbon Dioxide Level 26.7 MEQ/L Anion Gap 9 MEQ/L Estimat Glomerular Filtration Rate 5 ML/MIN Assessment and Plan Problem List: (1) CAD (coronary artery disease) ICD Codes: I25.10 - Atherosclerotic heart disease of [place] coronary artery without angina pectoris (2) Abnormal stress test ICD Codes: R94.39 - Abnormal result of other cardiovascular function study (3) ESRD (end stage renal disease) on dialysis ICD Codes: N18.6 - End stage renal disease; Z99.2 - Dependence on renal dialysis Status: Acute (4) Diabetes ICD Codes: E11.9 - Type 2 diabetes mellitus without complications Status: Acute (5) Hypertension ICD Codes: I10 - Essential (primary) hypertension Status: Acute Assessment and Plan 1) For renal transplant, abnormal stress test s/p DESx2 to LAD ASA/Brilinta 2) Will have to hold off on transplant for 6-12 months due to IBETH placement 3) Does have small vessel disease of the diagonal, con't medical management Small area of myocardium 4) PD when home 5) Con't BB, add statin No RADHA-I due to ESRD, can be re-evaluated by his part time 6) Cardiovascularly stable for discharge, follow up with Aditya Machuca DO Aug 09, 2017 23:52
== END 2017-08-09 12:46 | disposition home or self-care (01) ==
LOC: HDIC 10:09 → HDOC 10:09 → HCIS 15:17 → HDOC 08-09 12:46
PROVIDERS: ATTEND Nuclear Medicine Nuclear Cardiology
DX: I25.10 Atherosclerotic heart disease of native coronary artery without angina pectoris (principal); I12.0 Hypertensive chronic kidney disease with stage 5 chronic kidney disease or end stage renal disease; N18.6 End stage renal disease; E11.22 Type 2 diabetes mellitus with diabetic chronic kidney disease; E78.5 Hyperlipidemia, unspecified; Z79.4 Long term (current) use of insulin; Z99.2 Dependence on renal dialysis; Z79.82 Long term (current) use of aspirin; Z87.891 Personal history of nicotine dependence; Z82.49 Family history of ischemic heart disease and other diseases of the circulatory system
CPT/HCPCS: 80048; 82810; 82948; 85002; 85025; 85610; 85730; 92928; 93005; 93460; 93571; C1725; C1769; C1874; C1887; C1893; J0360; J1644; J2250; J3010; J7030; Q9967

== ENCOUNTER 2017-10-19 20:16 | Emergency (ER) | payer MEDICARE ==
[~2017-10-19] VITALS: Ht 182.9 cm; Wt 68.6 kg
[~2017-10-19 20:16] MED LIST changes: -AMAR2TAB PO; +ASPI81 PO; +BRIL90TA PO; -CARD120C4 PO; -FERR324T4 PO; -HYDR-2768 PO; +LANTUS2P SQ; -LANTUSP SQ; +LIPI10TA PO; -LIPI40TA PO; +METO25TA3 PO; -METO50TA PO; -NOVOLOGP2 SQ; +POTA10CA PO; -PRIN20TA2 PO
[2017-10-19 20:26] VITALS: BP 101/72; PULSE 89; RESP 16; TEMP 97.8; O2SAT 100
[2017-10-19] MEDS ORDERED: SEVEL800 PO (20:42)
[2017-10-19] MEDS ORDERED: ISOS30TA3 PO (20:42)
[2017-10-19] MEDS ORDERED: GEMF600T PO (20:42)
[2017-10-19] MEDS ORDERED: CALC0.5C PO (20:42)
[2017-10-19] MEDS ORDERED: SENS90TA PO (20:42)
[2017-10-19] MEDS ORDERED: MIDO5TAB PO (20:42)
[2017-10-19] MEDS ORDERED: CALC667T PO (20:42)
[2017-10-19 21:00] VITALS: BP 136/62; PULSE 85; RESP 16; O2SAT 100
--- NOTE | 2017-10-19 21:14 | PD ---
HPI Chief Complaint: Psychiatric Symptoms Time Seen by Provider: 21:07 Travel History International Travel<30 days: No Contact w/Intl Traveler<30days: No Traveled to known affect area: No History of Present Illness HPI Patient comes to the emergency department under [place]ahan act from [facility] that was enacted on October 17, 2017 for reported suicidal statements. Patient denies any suicidal or homicidal ideations. Denies any auditory or visual hallucinations. Patient denies any complaints currently. Denies any pain or radiation of pain. Denies anything making symptoms better or worse. PFSH Past Medical History Heart Rhythm Problems: No Cardiovascular Problems: Yes (mobitz 1 av block, murmur) High Cholesterol: Yes Chest Pain: No Congestive Heart Failure: No Coronary Artery Disease: Yes Diabetes: Yes (type 2) Patient Takes Glucophage: No Diminished Hearing: No Genitourinary: Yes Hypertension: Yes Kidney Stones: No Musculoskeletal: Yes Neurologic: No Reproductive: No Respiratory: Yes Renal Failure: Yes Past Surgical History Abdominal Surgery: Yes (Peritoneal dialysis tube insertion (2013)) Cardiac Surgery: No Ear Surgery: No Endocrine Surgery: No Eye Surgery: Yes (cataract,laser) Genitourinary Surgery: No Gynecologic Surgery: No Oral Surgery: Yes (teeth removed) Thoracic Surgery: No Tonsillectomy: Yes Other Surgery: Yes (T&A) Social History Alcohol Use: No Tobacco Use: No Substance Use: Yes (marijuana, 5-6 years ago;cocaine 20 years ago) Allergies-Medications (Allergen,Severity, Reaction): Coded Allergies: No Known Allergies (Verified Allergy, Unknown, 10/19/17) Reported Meds & Prescriptions Reported Meds & Active Scripts Active Tgt Aspirin (Aspirin) 81 Mg Chw 81 Mg PO DAILY 90 Days Lipitor (Atorvastatin Calcium) 10 Mg Tab 40 Mg PO HS 90 Days Brilinta (Ticagrelor) 90 Mg Tab 90 Mg PO BID 90 Days Reported Isosorbide Mononitrate ER (Isosorbide Mononitrate) 30 Mg Lalo 30 Mg PO DAILY Calcium Acetate (Phosphate Binder) 667 Mg Tab 667 Mg PO TID Midodrine 5 Mg Tab 5 Mg PO BID PRN Gemfibrozil 600 Mg Tab 600 Mg PO BIDAC Take 30 minutes prior to breakfast and dinner. Renvela (Sevelamer Carbonate) 800 Mg Tab 800 Mg PO DAILY Sensipar (Cinacalcet) 90 Mg Tab 90 Mg PO DAILY Calcitriol 0.5 Mcg Cap 0.5 Mcg PO BID Lantus Inj (Insulin Glargine) 1,000 Unit/10 Ml Vial 12 Units SQ HS Potassium Chloride ER (Potassium Chloride) 10 Meq Cap Unknown Dose PO DAILY Metoprolol Tartrate 25 Mg Tab 25 Mg PO DAILY Review of Systems Except as stated in HPI: all other systems reviewed are Neg Physical Exam Narrative GENERAL: Well-developed, well nourished, in no acute distress, and non-ill appearing. SKIN: Focused skin assessment warm and dry. Dressing in place noted right foot that is dry clean and intact. HEAD: Atraumatic. Normocephalic. EYES: Pupils equal and round. EOMI. No scleral icterus. No injection or drainage. ENT: No nasal bleeding or discharge. Mucous membranes pink and moist. NECK: Trachea midline. Supple. No nuclear rigidity. CARDIOVASCULAR: Regular rate and rhythm. Murmur appreciated. RESPIRATORY: No accessory muscle use. No respiratory distress. Clear to auscultation. Breath sounds equal bilaterally. MUSCULOSKELETAL: No obvious deformities. No clubbing. No cyanosis. No edema. Full range of motion. NEUROLOGICAL: Awake and alert. No obvious cranial nerve deficits. Motor grossly within normal limits. Normal speech. PSYCHIATRIC: Appropriate mood and affect; insight and judgment normal. Data Data Last Documented VS Vital Signs Date Time Temp Pulse Resp B/P (MAP) Pulse Ox O2 Delivery O2 Flow Rate FiO2 10/19/17 20:26 97.8 89 16 101/72 (82) 100 Orders Orders Consult Nephrology (10/19/17 ) Complete Blood Count With Diff (10/19/17 21:27) Comprehensive Metabolic Panel (10/19/17 21:27) Complete Blood Count With Diff (10/20/17 06:00) ^ Dialysis Permit (10/19/17 21:27) Notify Dr: Other (10/19/17 21:27) ^ Dialysis Catheter Care (10/19/17 21:27) ^ Dialysis Dressing ANTONIO.Q2D (10/19/17 21:27) ^ Dialysis Orders (10/19/17 21:27) Heparin Inj (Heparin Inj) (10/19/17 21:30) Sodium Chloride 0.9% Flush (Ns Flush) (10/19/17 21:30) (Hub Use Only)Inp Phy Cons/Ref (10/19/17 ) Admit Order (Ed Use Only) (10/19/17 ) Ict Development Manager / Telemetry ANTONIO.Q8H (10/19/17 21:59) Vital Signs (Adult) Q4H (10/19/17 21:59) Activity Bed Rest (10/19/17 21:59) Notify Dr: Other (10/19/17 21:59) Consult Hospitalist (10/19/17 ) MDM Medical Decision Making Medical Screen Exam Complete: Yes Emergency Medical Condition: Yes Differential Diagnosis Suicidal, homicidal, acute psychosis, end-stage renal disease Narrative Course Patient seen and examined. Paperwork from transferring hospital was reviewed. Patient's labs show normal white blood cell count drawn today. Anemia which is chronic. Potassium 3.3. Is unclear when patient received his last dose of IV antibiotics. As reported by manager psychiatry Shlomo garcia he was told patient was supposed to have PICC line and outpatient IV antibiotics however patient's insurance will not pay for this so reportedly the plan was to send patient to a rehab facility so they can receive the IV antibiotics. PICC line was reportedly removed prior to being transferred. Patient had his right great toe emergently amputated on October [address] Gordon and infectious disease was involved in patient's case that previous hospital. Patient was not sent with any prescriptions for antibiotics. Discussed patient with Dr. Bass, who saw and evaluated the patient, and is in agreement with plan of care and disposition. Consult was placed to nephrology for peritoneal dialysis. Physician Communication Physician Communication [address] Ferreira, psychiatrist on-call, who recommends having patient admitted to medicine with a consult to psych. 2123 discussed patient's with residents, states that they were not accepting physician and the accepting physician should be the one to admit with a consult to medicine. [address] Ferreira again, who states he is not aware of patient's other medical issues. Dr. Bass also spoke with Dr. 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 2158 Dr. Erickson spoke with Dr. Ferreira who is agreeable to admit the patient and is requesting a stat consult to medicine. Diagnosis Primary Impression: Suicidal ideations Additional Impressions: Gangrenous toes status post recent amputation End-stage renal disease on peritoneal dialysis Admitting Information Admitting Physician Requests: Admit Condition: Stable Kashmir Seo Oct 19, 2017 21:14
[2017-10-19] MEDS ORDERED: HEPARIN SODIUM - IV 10,000 UNITS/10 ML VIAL XX PRN (21:30)
[2017-10-19] MEDS ORDERED: SODIUM CHLORIDE 0.9% FLUSH 10 ML FLUSH IV FLUSH PRN (21:30)
[2017-10-19 22:00] VITALS: BP 137/63; PULSE 82; RESP 16; O2SAT 100
[2017-10-19 22:53] LABS: AUTOMATED NEUTROPHIL # 8.4 TH/MM3 (1.8-7.7); BASOPHIL # 0.1 TH/MM3 (0-0.2); BASOPHIL % 0.8 % (0.0-2.0); EOSINOPHIL # 0.2 TH/MM3 (0-0.4); EOSINOPHIL % 1.6 % (0.0-4.0); HEMATOCRIT 25.2 % (39.0-51.0); HEMOGLOBIN 8.8 GM/DL (13.0-17.0); LYMPH % 4.9 % (9.0-44.0); LYMPHOCYTE # 0.5 TH/MM3 (1.0-4.8); MEAN CELL VOLUME 93.2 FL (80.0-100.0); MEAN CORPUSCULAR HEMOGLOBIN 32.6 PG (27.0-34.0); MEAN CORPUSCULAR HGB CONC 34.9 % (32.0-36.0); MEAN PLATELET VOLUME 7.3 FL (7.0-11.0); MONO % 5.6 % (0.0-8.0); MONOCYTE # 0.5 TH/MM3 (0-0.9); NEUT % 87.1 % (16.0-70.0); PLATELET COUNT 257 TH/MM3 (150-450); RED CELL DISTRIBUTION WIDTH 13.3 % (11.6-17.2); WHITE BLOOD COUNT 9.6 TH/MM3 (4.0-11.0)
[2017-10-19 23:00] VITALS: BP 129/70; PULSE 86; RESP 16; O2SAT 99
[2017-10-19 23:21] LABS: ALBUMIN 1.4 GM/DL (3.4-5.0); ALT (GPT) 14 U/L (12-78); AST (GOT) 25 U/L (15-37); BICARBONATE 28.8 MEQ/L (21.0-32.0); BLOOD UREA NITROGEN 27 MG/DL (7-18); CALCIUM 8.2 MG/DL (8.5-10.1); CHLORIDE 100 MEQ/L (98-107); CREATININE 9.64 MG/DL (0.60-1.30); GLOMERULAR FILTRATION RATE 5 ML/MIN (>89); GLUCOSE,RANDOM 140 MG/DL (74-106); SODIUM (NA) 138 MEQ/L (136-145)
[2017-10-19 23:24] LABS: ALKALINE PHOSPHATASE 68 U/L (45-117); TOTAL BILIRUBIN ADULT 0.3 MG/DL (0.2-1.0); TOTAL PROTEIN 5.1 GM/DL (6.4-8.2)
[2017-10-20] VITALS: BP 133/88; PULSE 85; RESP 16; O2SAT 97
--- NOTE | 2017-10-20 00:16 | PD ---
Physical Exam Narrative I, Dr. Bass, have reviewed the advance practice practitioner's documentation and am in agreement, met with the patient face to face, made the diagnosis, and the medical decision making was done by me. *My assessment and Findings: Suicidal ideation vs. ESRD on peritoneal dialysis vs. s/p right great toe amputation 67yo M was transferred from [facility] and accepted by psychiatry because he was [place] Acted for suicidal ideation. Pt was admitted there and had right great toe amputation on 10/13/17 and was on IV antibiotics. It is unclear if he was suppose to continue IV antibiotics or when his last dose is. Pt is also an ESRD patient who needs peritoneal dialysis. Nephrology consult placed and peritoneal dialysis has been arrange for pt. Discussed case with Dr. Ferreira, psychiatrist because both resident physician and [facility] said they would be consulted and not accept the patient primarily to their service because this is a transfer and psych accepted the patient. Dr. Ferreira said that we can admit the pt to psych in the psych med floor and to consult medicine. Data Data Last Documented VS Vital Signs Date Time Temp Pulse Resp B/P (MAP) Pulse Ox O2 Delivery O2 Flow Rate FiO2 10/19/17 22:00 82 16 137/63 (87) 100 Room Air 10/19/17 20:26 97.8 Orders Orders Consult Nephrology (10/19/17 ) Complete Blood Count With Diff (10/19/17 21:27) Comprehensive Metabolic Panel (10/19/17 21:27) Complete Blood Count With Diff (10/20/17 06:00) ^ Dialysis Permit (10/19/17 21:27) Notify Dr: Other (10/19/17 21:27) ^ Dialysis Catheter Care (10/19/17 21:27) ^ Dialysis Dressing ANTONIO.Q2D (10/19/17 21:27) ^ Dialysis Orders (10/19/17 21:27) Heparin Inj (Heparin Inj) (10/19/17 21:30) Sodium Chloride 0.9% Flush (Ns Flush) (10/19/17 21:30) (Hub Use Only)Inp Phy Cons/Ref (10/19/17 ) Admit Order (Ed Use Only) (10/19/17 ) Ballaster / Telemetry ANTONIO.Q8H (10/19/17 21:59) Vital Signs (Adult) Q4H (10/19/17 21:59) Activity Bed Rest (10/19/17 21:59) Notify Dr: Other (10/19/17 21:59) Consult Hospitalist (10/19/17 ) MDM Supervised Visit with ELSIE: Yes Diagnosis Primary Impression: Suicidal ideations Additional Impressions: Gangrenous toes status post recent amputation End-stage renal disease on peritoneal dialysis Admitting Information Admitting Physician Requests: Observation Condition: Stable Miri Bass DO Oct 20, 2017 00:16
[2017-10-20 03:00] VITALS: BP 172/74; PULSE 83; RESP 16; O2SAT 98
[2017-10-20] MEDS ORDERED: GLUCAGON 1 MG/ML VIAL OTHER PRN (03:00)
[2017-10-20] MEDS ORDERED: DEXTROSE 50% IN WATER 50 ML VIAL(D50) IV PUSH PRN (03:00)
--- NOTE | 2017-10-20 04:04 | PD.CONS ---
HPI [facility] Hospitalists Consult Requested By Reason for Consult Medical Management Primary Care Physician Non-Staff Diagnoses: (1) Toe osteomyelitis (2) ESRD (end stage renal disease) on dialysis (3) HTN (hypertension) (4) Anemia (5) Suicidal ideations (6) DM (diabetes mellitus) History of Present Illness This is a 67-year-old male with a PMH of HTN, Hyperlipidemia, CAD, DM, Peripheral Neuropathy, ESRD on PD, Right Toe Osteomyelitis s/p Amputation who was accepted in transfer by Psychiatry from [facility] under Callahan Act. Per records, pt underwent right great toe amputation by Dr. Paul on 10/13/17 due to gas gangrene/osteomyelitis, was evaluated by ID, had PICC line placed and plans for long term care pharmacist antibiotics. Prior to arrival from , however, PICC line removed for unclear reasons. On arrival, BP 101/72, HR 89, O2 sat are present RA, Afebrile. Hemoglobin 8.8, previously 10.3 on 08/09/2017. Chemistry at baseline. Review of Systems Except as stated in HPI: all other systems reviewed are Neg ROS: 14 point review of systems otherwise negative. Past Family Social History Allergies: Coded Allergies: No Known Allergies (Verified Allergy, Unknown, 10/19/17) Past Medical History PMH: HTN, Hyperlipidemia, CAD, DM, Peripheral Neuropathy, ESRD on PD, Right Toe Osteomyelitis s/p Amputation Past Surgical History PAST SURGICAL HISTORY: PD Catheter, Cataract Surgery, Dental Extraction, Tonsillectomy Family History PAST FAMILY HISTORY: Reviewed. No h/o DM or CAD Social History PAST SOCIAL HISTORY: Negative for alcohol or tobacco, history of drug use, denies recent ingestion. Physical Exam Vital Signs Vital Signs Date Time Temp Pulse Resp B/P (MAP) Pulse Ox O2 Delivery O2 Flow Rate FiO2 10/20/17 00:00 85 16 133/88 (103) 97 Room Air 10/19/17 23:00 86 16 129/70 (89) 99 Room Air 10/19/17 22:00 82 16 137/63 (87) 100 Room Air 10/19/17 21:00 85 16 136/62 (86) 100 Room Air 10/19/17 20:26 97.8 89 16 101/72 (82) 100 Physical Exam PE: GENERAL: Middle-aged white male in no acute distress, currently receiving PD. HEENT: PERRLA, EOMI. No scleral icterus or conjunctival pallor. No lid lag or facial droop. CARDIOVASCULAR: Regular rate and rhythm. No obvious murmurs to auscultation. No chest tenderness to palpation. RESPIRATORY: No obvious rhonchi or wheezing. Clear to auscultation. Breath sounds equal bilaterally. GASTROINTESTINAL: Abdomen soft, non-tender, nondistended. BS normal. MUSCULOSKELETAL: Extremities without clubbing, cyanosis, or edema. No obvious deformities. No PICC line in place. Right great toe amputation, dressing in place, intact, no drainage. NEUROLOGICAL: Awake, alert and oriented x4. No focal neurologic deficits. Moving both upper and lower extremities spontaneously. Laboratory Laboratory Tests Test 10/19/17 22:25 White Blood Count 9.6 Red Blood Count 2.70 Hemoglobin 8.8 Hematocrit 25.2 Mean Corpuscular Volume 93.2 Mean Corpuscular Hemoglobin 32.6 Mean Corpuscular Hemoglobin Concent 34.9 Red Cell Distribution Width 13.3 Platelet Count 257 Mean Platelet Volume 7.3 Neutrophils (%) (Auto) 87.1 Lymphocytes (%) (Auto) 4.9 Monocytes (%) (Auto) 5.6 Eosinophils (%) (Auto) 1.6 Basophils (%) (Auto) 0.8 Neutrophils # (Auto) 8.4 Lymphocytes # (Auto) 0.5 Monocytes # (Auto) 0.5 Eosinophils # (Auto) 0.2 Basophils # (Auto) 0.1 CBC Comment DIFF FINAL Differential Comment Blood Urea Nitrogen 27 Creatinine 9.64 Random Glucose 140 Total Protein 5.1 Albumin 1.4 Calcium Level 8.2 Alkaline Phosphatase 68 Aspartate Amino Transf (AST/SGOT) 25 Alanine Aminotransferase (ALT/SGPT) 14 Total Bilirubin 0.3 Sodium Level 138 Potassium Level 3.4 Chloride Level 100 Carbon Dioxide Level 28.8 Anion Gap 9 Estimat Glomerular Filtration Rate 5 Result Diagram: 10/19/17222410/19/172224 Assessment and Plan Problem List: (1) Toe osteomyelitis ICD Code: M86.9 - Osteomyelitis, unspecified (2) ESRD (end stage renal disease) on dialysis ICD Code: N18.6 - End stage renal disease; Z99.2 - Dependence on renal dialysis Status: Acute (3) HTN (hypertension) ICD Code: I10 - Essential (primary) hypertension (4) Anemia ICD Code: D64.9 - Anemia, unspecified (5) Suicidal ideations ICD Code: R45.851 - Suicidal ideations Status: Acute (6) DM (diabetes mellitus) ICD Code: E11.9 - Type 2 diabetes mellitus without complications Assessment and Plan A/P: 1. Toe Osteomyelitis: s/p right great toe amputation by Dr. Paul 10/13/17, s /p eval by ID w/ PICC placement and plans for long-term IV Abx per records, however PICC line removed prior to transfer, no orders for continuation of antibiotics. Previously on Vanc/Zosyn. Currently afebrile, no leukocytosis, will consult ID for recommendations regarding antibiotic regimen. PICC line placement as needed. 2. ESRD on PD: Follows w/ Dr. Lucio, consult placed, pt currently receiving PD. 3. HTN: Uncontrolled. BP 170's systolic, will resume home Imdur, increase Metoprolol, monitor BP. 4. Anemia: Hgb 8.8, previously 10.3 on 08/09/17, no active bleeding noted, recheck Hgb/Hct in am, transfuse as needed for Hgb <7 5. Suicidal Ideation: tx from [facility] for Inpatient Psych, currently under Callahan Act, management by Psychiatry. 6. DM: Sliding scale w/ Accu-cheks. Resume home Insulin. 7. DVT Prophylaxis: Mechanical contraindication due to foot wound 8. Social work for d/c planning as needed. 9. Case discussed w/ ER physician at length, labs/records/imaging reports from [facility] reviewed by me. Melany Reyes MD Oct 20, 2017 04:04
[2017-10-20 04:56] LABS: BASOPHIL # 0.1 TH/MM3 (0-0.2); BASOPHIL % 1.2 % (0.0-2.0); EOSINOPHIL # 0.2 TH/MM3 (0-0.4); HEMATOCRIT 27.1 % (39.0-51.0); HEMOGLOBIN 9.3 GM/DL (13.0-17.0); LYMPH % 4.8 % (9.0-44.0); LYMPHOCYTE # 0.4 TH/MM3 (1.0-4.8); MEAN CELL VOLUME 93.2 FL (80.0-100.0); MEAN CORPUSCULAR HGB CONC 34.3 % (32.0-36.0); MEAN PLATELET VOLUME 7.1 FL (7.0-11.0); MONO % 5.9 % (0.0-8.0); MONOCYTE # 0.6 TH/MM3 (0-0.9); NEUT % 86.1 % (16.0-70.0); PLATELET COUNT 266 TH/MM3 (150-450); RED BLOOD COUNT 2.91 MIL/MM3 (4.50-5.90); RED CELL DISTRIBUTION WIDTH 13.2 % (11.6-17.2); WHITE BLOOD COUNT 9.3 TH/MM3 (4.0-11.0)
[2017-10-20 06:00] VITALS: BP 183/90; PULSE 81; RESP 16; O2SAT 99
[2017-10-20] MEDS ORDERED: ISOSORBIDE MONONITRATE 30 MG CR TAB (IMDUR) PO SCH (07:00)
[2017-10-20] MEDS: GEMFIBROZIL 600 MG TAB PO SCH ×2 (07:00→16:00)
[2017-10-20] MEDS: INSULIN ASPART SUPPLEMENTAL SCALE SQ SCH ×3 (08:07→16:57)
[2017-10-20 08:20] VITALS: BP 176/85; PULSE 70; RESP 18; TEMP 97.6; O2SAT 98
[2017-10-20 09:00] VITALS: BP 110/52; PULSE 64; RESP 20; TEMP 97.6; O2SAT 100
[2017-10-20] MEDS ORDERED: ASPIRIN 81 MG CHEW TAB PO SCH (09:00)
[2017-10-20] MEDS ORDERED: CINACALCET HYDROCHLORIDE 30 MG TAB PO SCH (09:00)
[2017-10-20] MEDS ORDERED: EPOETIN ALFA 20,000 UNITS/ML VIAL SQ ONE (09:00)
[2017-10-20] MEDS ORDERED: SEVELAMER CARBONATE 800 MG TAB PO SCH (09:00)
[2017-10-20] MEDS ORDERED: METOPROLOL TARTRATE 50 MG TAB PO SCH (09:00)
[2017-10-20] MEDS ORDERED: METOPROLOL TARTRATE 25 MG TAB PO SCH (09:00)
[2017-10-20] MEDS: CALCIUM ACETATE 667 MG CAP PO SCH ×3 (09:00→16:58)
[2017-10-20] MEDS ORDERED: TICAGRELOR 90 MG TAB PO SCH (09:00)
[2017-10-20] MEDS ORDERED: CALCITRIOL 0.25 MCG CAP PO SCH (09:00)
--- NOTE | 2017-10-20 11:02 | HHI.HP ---
Provisional Diagnosis Admission Date Oct 19, 2017 at 22:05 Quinn I. 1. Adjustment disorder with mixed disturbance of emotions and conduct, resolved Quinn II. Deferred Certification of Person's Competence To Provide Express and Informed Consent I have personally examined Tony Keen , a person being served at [facility] on, Oct 20, 2017 11:02. Express and informed consent means consent voluntarily given in writing, by a competent person, after sufficient explanation and disclosure of the subject matter involved to enable the person to make a knowing and willful decision without any element of force, fraud, deceit, duress, or other form of constraint or coercion. This person is 18 years of age or older, is not now known to be incompetent to consent to treatment with a guardian advocate, and does not have a health care surrogate or proxy currently making medical treatment decisions. I have found this person to be one of the following: [x] Competent to provide express and informed consent, as defined above, for voluntary admission to this facility and is competent to provide express and informed consent for treatment. He/she has the consistent capacity to make well reasoned, willful, and knowing decisions concerning his or her medical or mental health treatment. The person fully and consistently understands the purpose of the admission for examination/placement and is fully capable of personally exercising all rights assured [place] Incompetent to provide express and informed consent to voluntary admission, and this is incompetent to provide express and informed consent to treatment. The person must be transferred to involuntary status and a petition for a guardian advocate filed with the Circuit Court. [] Refusing to provide express and informed consent to voluntary admission but is competent to provide express and informed consent for treatment. The person must be discharged or transferred to involuntary status. Form shall be completed within 24 hours of a person's arrival at the receiving facility and filed in the clinical record of each person: 1. Admitted on a voluntary basis 2. Permitted to provide express and informed consent to his/her own treatment 3. Allowed to transfer from involuntary to voluntary status 4. Prior to permitting a person to consent to his or her own treatment after having been previously found incompetent to consent to treatment. History of Present Illness Capacity: Has Capacity Psych Chief Complaint: Statements at outside hospital HPI Mr. Keen is a 67-year-old male with no reported past psychiatric history who presents in transfer from [facility] under a Callahan act initiated by Dr. Stallings alleging that the patient verbalized suicidal ideation to nurse. Documentation from outside hospital reviewed. I note psychological consultation by Dr. Gonzalez. Reviewing our electronic medical record, I see no previous psychiatric contact within our system. Patient seen and examined. Chart reviewed. Case discussed with nurse on the medical psychiatric unit. No evidence of any suicidality or homicidality or behavioral disturbance while the patient has been under observation here. Case also discussed with Dr. Ferreira who accepted the patient in transfer; he reports that he has secured a transfer agreement for this patient such that if the Callahan act were lifted patient will be transferred back to [facility]. On my examination today, the patient is calm and cooperative with examination. Regarding alleged statements to nurse the patient tells me "I was forced to say it. I was supposed to get out and then they started adding things and adding more and they wouldn't listen. I told 'em I was gonna take a gun and kill myself, which was bullshit. I was just pissed off." Patient reports he was requesting to be discharged home with home health care, and clinicians at [facility] would not listen. He adamantly denies any suicidal intent in the statement. He denies any suicidal or homicidal ideation, intent or plan now and contracts for safety. He says that he wants to live for his pet cats and because he likes his neighborhood. I have administered the PHQ 9, and the patient scores 5/27 (3/3 on Q4 sleep, 1/3 on Q5 appetite, 1/5 on Q7 concentration) with 0/3 on Q9 (regarding self-harm). This score is likely more reflective of patient's physical issues than any depressive diathesis. I can elicit no hypomanic or manic symptoms. He denies any audiovisual hallucinations. I can elicit no paranoia, no ideas of reference, no thought insertion or withdrawal or other delusional material. There is no evidence of any impairment in reality construction. The remainder of the psychiatric ROS is negative. He verbalizes no acute physical complaints. The patient is requesting discharge from the inpatient psychiatric unit today. With the patient's permission, I have obtained collateral information from his dialysis nurse Marifer at [phone]. Marifer notes that she has worked with the patient for about 4 or 5 years. She has absolutely no concerns about the patient being a risk of harm to himself or others. She actually spoke with the patient night before last and heard his frustration at the care he was receiving at [facility] but urged him to remain at the hospital rather than leaving AMA. She does not feel that the patient requires psychiatric hospitalization at this time. She will work to assist the patient to seek out counseling in the community. Past psychiatric history: The patient denies a history of psychiatric diagnosis. He denies a history of inpatient or outpatient psychiatric treatment. He denies a history of suicide attempts. Family history: The patient denies a family history of serious mental illness or suicide. Chemical dependency history: The patient reports that he used to drink alcohol from age [age]. He used some cocaine in the 1980s. He also previously smoked cannabis. He denies any substance use presently. Social history: The patient lives alone. He has a pet cat. He is single with no children. 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 He also has a history of [employer] service. He denies any legal issues. Denies any christianity or spiritual beliefs. Denies any history of physical, verbal or sexual abuse. Denies any history of combat trauma. He does report that he keeps a .38 handgun for protection. He denies ever having had a raissa neal suicide plan involving a gun. He notes that the firearm is secured. Review of Systems Except as stated in HPI: all other systems reviewed are Neg Past Family Social History Coded Allergies: No Known Allergies (Verified Allergy, Unknown, 10/19/17) Past Medical History See electronic medical record Active Scripts Aspirin (Tgt Aspirin) 81 Mg Chw, 81 MG PO DAILY for CAD for 90 Days, EA 3 Refills Prov:Aditya Wright DO 08/09/17 Atorvastatin (Lipitor) 10 Mg Tab, 40 MG PO HS for CAD for 90 Days, TAB 3 Refills Prov:Aditya Wright DO 08/09/17 Ticagrelor (Brilinta) 90 Mg Tab, 90 MG PO BID for CAD for 90 Days, #180 TAB 3 Refills Prov:Aditya Wright DO 08/09/17 Reported Medications Isosorbide Mononitrate ER (Isosorbide Mononitrate ER) 30 Mg Lalo, 30 MG PO DAILY for Prevent Chest Pain, #30 TAB 0 Refills 10/19/17 Calcium Acetate (Phosphate Binder) (Calcium Acetate (Phosphate Binder)) 667 Mg Tab, 667 MG PO TID for Hyperphosphatemia, #90 TAB 0 Refills 10/19/17 Midodrine (Midodrine) 5 Mg Tab, 5 MG PO BID Y for SYMPTOMATIC HYPOTENSION, #90 TAB 0 Refills 10/19/17 Gemfibrozil (Gemfibrozil) 600 Mg Tab, 600 MG PO BIDAC, #60 TAB 0 Refills Take 30 minutes prior to breakfast and dinner. 10/19/17 Sevelamer Carbonate (Renvela) 800 Mg Tab, 800 MG PO DAILY for Control phosphorous levels, #90 TAB 0 Refills 10/19/17 Cinacalcet (Sensipar) 90 Mg Tab, 90 MG PO DAILY, #30 TAB 0 Refills 10/19/17 Calcitriol (Calcitriol) 0.5 Mcg Cap, 0.5 MCG PO BID for Calcium Supplement, #30 CAP 0 Refills 10/19/17 Insulin Glargine Inj (Lantus Inj) 1,000 Unit/10 Ml Vial, 12 UNITS SQ HS for Blood Sugar Management, VIAL 0 Refills 08/08/17 Potassium Chloride ER (Potassium Chloride ER) 10 Meq Cap, PO DAILY for Electrolyte Replacement, #30 CAP 0 Refills 08/08/17 Metoprolol Tartrate (Metoprolol Tartrate) 25 Mg Tab, 25 MG PO DAILY, #30 TAB 0 Refills 08/08/17 Current Medications Medications (Trade) Dose Ordered Sig/Kristina Route Start Time Stop Time Status Last Admin (Heparin Inj) 1,000 units WITH DIALYSIS PRN XX 10/19/17 21:30 (NS Flush) 10 ml UNSCH PRN IV FLUSH 10/19/17 21:30 (D50w (Vial) Inj) 50 ml UNSCH PRN IV PUSH 10/20/17 03:00 (Glucagon Inj) 1 mg UNSCH PRN OTHER 10/20/17 03:00 (NovoLOG SUPPLEMENTAL SCALE) 1 ACHS SLIDING SCALE SQ 10/20/17 08:00 10/20/17 08:07 (Aspirin Chew) 81 mg DAILY PO 10/20/17 09:00 (Lipitor) 40 mg HS PO 10/20/17 21:00 (Rocaltrol) 0.5 mcg BID PO 10/20/17 09:00 (Phoslo) 667 mg TID PO 10/20/17 09:00 (Lopid) 600 mg BIDAC PO 10/20/17 07:00 (Levemir Inj) 12 units HS SQ 10/20/17 21:00 (Renvela) 800 mg DAILY PO 10/20/17 09:00 (Brilinta) 90 mg BID PO 10/20/17 09:00 (Sensipar) 90 mg DAILY PO 10/20/17 09:00 (Lopressor) 50 mg BID PO 10/20/17 09:00 (Imdur) 30 mg DAILY@0700 PO 10/20/17 07:00 Patient's Strengths (min. 2) Attending to basic needs. Verbally fluent. Physical Exam Physical exam completed by hospitalist framing consultant. On my examination today, the patient appears to be in no acute physical distress. No motor abnormalities noted. Labs and vitals reviewed: Vital Signs Vital Signs Date Time Temp Pulse Resp B/P (MAP) Pulse Ox O2 Delivery O2 Flow Rate FiO2 10/20/17 08:23 70 18 10/20/17 08:20 97.6 176/85 (115) 98 10/20/17 06:00 Room Air I/O 10/20/17 10/20/17 10/21/17 08:00 16:00 00:00 Output Total 194 ml Balance -194 ml Lab Results Test 10/19/17 22:25 10/20/17 04:29 White Blood Count 9.6 TH/MM3 9.3 TH/MM3 Red Blood Count 2.70 MIL/MM3 2.91 MIL/MM3 Hemoglobin 8.8 GM/DL 9.3 GM/DL Hematocrit 25.2 % 27.1 % Mean Corpuscular Volume 93.2 FL 93.2 FL Mean Corpuscular Hemoglobin 32.6 PG 32.0 PG Mean Corpuscular Hemoglobin Concent 34.9 % 34.3 % Red Cell Distribution Width 13.3 % 13.2 % Platelet Count 257 TH/MM3 266 TH/MM3 Mean Platelet Volume 7.3 FL 7.1 FL Neutrophils (%) (Auto) 87.1 % 86.1 % Lymphocytes (%) (Auto) 4.9 % 4.8 % Monocytes (%) (Auto) 5.6 % 5.9 % Eosinophils (%) (Auto) 1.6 % 2.0 % Basophils (%) (Auto) 0.8 % 1.2 % Neutrophils # (Auto) 8.4 TH/MM3 8.0 TH/MM3 Lymphocytes # (Auto) 0.5 TH/MM3 0.4 TH/MM3 Monocytes # (Auto) 0.5 TH/MM3 0.6 TH/MM3 Eosinophils # (Auto) 0.2 TH/MM3 0.2 TH/MM3 Basophils # (Auto) 0.1 TH/MM3 0.1 TH/MM3 CBC Comment DIFF FINAL DIFF FINAL Differential Comment Blood Urea Nitrogen 27 MG/DL Creatinine 9.64 MG/DL Random Glucose 140 MG/DL Total Protein 5.1 GM/DL Albumin 1.4 GM/DL Calcium Level 8.2 MG/DL Alkaline Phosphatase 68 U/L Aspartate Amino Transf (AST/SGOT) 25 U/L Alanine Aminotransferase (ALT/SGPT) 14 U/L Total Bilirubin 0.3 MG/DL Sodium Level 138 MEQ/L Potassium Level 3.4 MEQ/L Chloride Level 100 MEQ/L Carbon Dioxide Level 28.8 MEQ/L Anion Gap 9 MEQ/L Estimat Glomerular Filtration Rate 5 ML/MIN Mental Status Examination Appearance: Appropriate Consciousness: Alert Orientation: Person, Place, Date/Time (Month and year but not exact date), Situation Motor Activity: Normal gait Speech: Unremarkable Language: Adequate Fund of Knowledge: Adequate Attention and Concentration: Adequate Memory: Unremarkable (Registration 3 out of 3 and recall 3 out of 3 at 5 minutes.) Mood: Appropriate Affect: Appropriate Thought Process & Associations: Intact, Logical, Goal directed, Linear Thought Content: Appropriate Hallucination Type: None Delusion Type: None Suicidal Ideation: No Suicidal Plan: No Suicidal Intention: No Homicidal Ideation: No Homicidal Plan: No Homicidal Intention: No Insight: Adequate Judgment: Adequate Mental Status Exam Remarks Able to spell world forwards and gives it backwards as DLOW. Able to name 2 items and repeat a phrase. Proverb interpretation is intact. Assessment & Plan Problem List: (1) Adjustment disorder with mixed disturbance of emotions and conduct ICD Codes: F43.25 - Adjustment disorder with mixed disturbance of emotions and conduct Assessment & Plan 67-year-old male with psychiatric history as detailed above who presents in transfer from outside hospital under a Callahan act. On my examination today, the patient provides a reasonable explanation for the statements that he made to nursing staff. He was frustrated that staff at outside hospital were not listening to him, and his statement to the nurse was an expression/outlet of sorts for this frustration. He denies that there is any genuine suicidal intent in the statement. He denies any suicidal or homicidal ideation presently and contracts for safety. I can detect no unstable mental illness as defined under the Callahan act in this patient at this time. There is no evidence of self-care deficit from mental illness that would necessitate involuntary psychiatric hospitalization. I have obtained reassuring collateral from the patient's dialysis nurse who knows him well. Synthesizing this information and based on the available evidence, I superior court judge that the patient does not presently meet the Callahan act criteria. I have lifted the Callahan act. As per the terms of the transfer agreement, the patient will be transferred back to [facility]. I recommend referral for outpatient counseling on discharge from that facility, and I have counseled the patient to return to the psychiatric emergency room for any concerning psychiatric symptoms as part of a general safety plan. Patient is to continue with medication regimen as at [facility]. I have provided no prescriptions on discharge. This note serves also as my discharge summary. Zoltan Kumar MD Oct 20, 2017 11:02
--- NOTE | 2017-10-20 12:26 | PD.CONS ---
HPI Service Nephrology Consult Requested By Dr. Atkins Reason for Consult ESRD management Primary Care Physician Non-Staff History of Present Illness Patient is a 67-year-old white male with history of diabetes, hypertension, end- stage renal disease on peritoneal dialysis, coronary artery disease status post 2 stents, he has right toe amputation, he now presents with suicidal ideation and transferred from [facility] to [place] under the [place] act, he did his peritoneal dialysis last night, he follows with Dr. Lucio. Review of Systems Constitutional: COMPLAINS OF: Fatigue Endocrine: DENIES: Heat/cold intolerance, Polydipsia, Polyuria, Polyphagia Eyes: DENIES: Blurred vision, Diplopia, Eye inflammation, Eye pain, Vision loss , Photosensitivity, Double Vision Respiratory: DENIES: Apneas, Cough, Snoring, Wheezing, Hemoptysis, Sputum production, Shortness of breath Cardiovascular: DENIES: Chest pain, Palpitations, Syncope, Dyspnea on Exertion , PND, Lower Extremity Edema, Orthopnea, Claudication Musculoskeletal: COMPLAINS OF: Joint pain, Muscle aches Neurologic: COMPLAINS OF: Abnormal gait Past Family Social History Allergies: Coded Allergies: No Known Allergies (Verified Allergy, Unknown, 10/19/17) Past Medical History End-stage renal disease Diabetes Hypertension Hyperlipidemia Coronary artery disease Peripheral vascular disease Right toe amputation Past Surgical History Right toe amputation Tonsillectomy Peritoneal dialysis catheter placement Coronary angiography with stent placement Reported Medications Reported Meds & Active Scripts Active Tgt Aspirin (Aspirin) 81 Mg Chw 81 Mg PO DAILY 90 Days Lipitor (Atorvastatin Calcium) 10 Mg Tab 40 Mg PO HS 90 Days Brilinta (Ticagrelor) 90 Mg Tab 90 Mg PO BID 90 Days Reported Isosorbide Mononitrate ER (Isosorbide Mononitrate) 30 Mg Lalo 30 Mg PO DAILY Calcium Acetate (Phosphate Binder) 667 Mg Tab 667 Mg PO TID Midodrine 5 Mg Tab 5 Mg PO BID PRN Gemfibrozil 600 Mg Tab 600 Mg PO BIDAC Take 30 minutes prior to breakfast and dinner. Renvela (Sevelamer Carbonate) 800 Mg Tab 800 Mg PO DAILY Sensipar (Cinacalcet) 90 Mg Tab 90 Mg PO DAILY Calcitriol 0.5 Mcg Cap 0.5 Mcg PO BID Lantus Inj (Insulin Glargine) 1,000 Unit/10 Ml Vial 12 Units SQ HS Potassium Chloride ER (Potassium Chloride) 10 Meq Cap Unknown Dose PO DAILY Metoprolol Tartrate 25 Mg Tab 25 Mg PO DAILY Active Ordered Medications Current Medications Medications (Trade) Dose Ordered Sig/Kristina Route Start Time Stop Time Status Last Admin (Heparin Inj) 1,000 units WITH DIALYSIS PRN XX 10/19/17 21:30 (NS Flush) 10 ml UNSCH PRN IV FLUSH 10/19/17 21:30 (D50w (Vial) Inj) 50 ml UNSCH PRN IV PUSH 10/20/17 03:00 (Glucagon Inj) 1 mg UNSCH PRN OTHER 10/20/17 03:00 (NovoLOG SUPPLEMENTAL SCALE) 1 ACHS SLIDING SCALE SQ 10/20/17 08:00 10/20/17 11:59 (Aspirin Chew) 81 mg DAILY PO 10/20/17 09:00 10/20/17 09:00 (Lipitor) 40 mg HS PO 10/20/17 21:00 (Rocaltrol) 0.5 mcg BID PO 10/20/17 09:00 (Phoslo) 667 mg TID PO 10/20/17 09:00 (Lopid) 600 mg BIDAC PO 10/20/17 07:00 (Levemir Inj) 12 units HS SQ 10/20/17 21:00 (Renvela) 800 mg DAILY PO 10/20/17 09:00 (Brilinta) 90 mg BID PO 10/20/17 09:00 (Sensipar) 90 mg DAILY PO 10/20/17 09:00 (Lopressor) 50 mg BID PO 10/20/17 09:00 10/20/17 09:00 (Imdur) 30 mg DAILY@0700 PO 10/20/17 07:00 Family History Noncontributory Social History He used to smoke in the Past 40 pack years of smoking, denies alcohol use Physical Exam Vital Signs Vital Signs Date Time Temp Pulse Resp B/P (MAP) Pulse Ox O2 Delivery O2 Flow Rate FiO2 10/20/17 08:23 70 18 10/20/17 08:20 97.6 70 18 176/85 (115) 98 10/20/17 06:00 81 16 183/90 (121) 99 Room Air 10/20/17 03:00 83 16 172/74 (106) 98 Room Air 10/20/17 00:00 85 16 133/88 (103) 97 Room Air 10/19/17 23:00 86 16 129/70 (89) 99 Room Air 10/19/17 22:00 82 16 137/63 (87) 100 Room Air 10/19/17 21:00 85 16 136/62 (86) 100 Room Air 10/19/17 20:26 97.8 89 16 101/72 (82) 100 Physical Exam GENERAL: Well-nourished, well-developed patient. SKIN: Warm and dry. HEAD: Normocephalic. EYES: No scleral icterus. No injection or drainage. NECK: Supple, trachea midline. No JVD or lymphadenopathy. CARDIOVASCULAR: Regular rate and rhythm without murmurs, gallops, or rubs. RESPIRATORY: Breath sounds equal bilaterally. No accessory muscle use. GASTROINTESTINAL: Abdomen soft, non-tender, nondistended. PD catheter in place EXTREMITIES: No cyanosis, right leg swelling present status post toe amputation NEUROLOGICAL: Awake, alert, and oriented x 3. Non-focal. Laboratory Laboratory Tests Test 10/19/17 22:25 10/20/17 04:29 White Blood Count 9.6 9.3 Red Blood Count 2.70 2.91 Hemoglobin 8.8 9.3 Hematocrit 25.2 27.1 Mean Corpuscular Volume 93.2 93.2 Mean Corpuscular Hemoglobin 32.6 32.0 Mean Corpuscular Hemoglobin Concent 34.9 34.3 Red Cell Distribution Width 13.3 13.2 Platelet Count 257 266 Mean Platelet Volume 7.3 7.1 Neutrophils (%) (Auto) 87.1 86.1 Lymphocytes (%) (Auto) 4.9 4.8 Monocytes (%) (Auto) 5.6 5.9 Eosinophils (%) (Auto) 1.6 2.0 Basophils (%) (Auto) 0.8 1.2 Neutrophils # (Auto) 8.4 8.0 Lymphocytes # (Auto) 0.5 0.4 Monocytes # (Auto) 0.5 0.6 Eosinophils # (Auto) 0.2 0.2 Basophils # (Auto) 0.1 0.1 CBC Comment DIFF FINAL DIFF FINAL Differential Comment Blood Urea Nitrogen 27 Creatinine 9.64 Random Glucose 140 Total Protein 5.1 Albumin 1.4 Calcium Level 8.2 Alkaline Phosphatase 68 Aspartate Amino Transf (AST/SGOT) 25 Alanine Aminotransferase (ALT/SGPT) 14 Total Bilirubin 0.3 Sodium Level 138 Potassium Level 3.4 Chloride Level 100 Carbon Dioxide Level 28.8 Anion Gap 9 Estimat Glomerular Filtration Rate 5 Result Diagram: 10/20/17 0429 10/19/17 2225 Assessment and Plan Problem List: (1) ESRD (end stage renal disease) on dialysis ICD Codes: N18.6 - End stage renal disease; Z99.2 - Dependence on renal dialysis Status: Acute Plan: Patient is on peritoneal dialysis is doing well tolerated UF 194 mL Continue to monitor his progress While he is with us Once stable he will be transferred back to [facility] (2) DM (diabetes mellitus) ICD Codes: E11.9 - Type 2 diabetes mellitus without complications Plan: Continue to monitor (3) HTN (hypertension) ICD Codes: I10 - Essential (primary) hypertension Plan: Monitor blood pressure (4) CAD (coronary artery disease) ICD Codes: I25.10 - Atherosclerotic heart disease of [place] coronary artery without angina pectoris Plan: Status post stent Héctor Taylor MD Oct 20, 2017 12:26
[2017-10-20] MEDS ORDERED: INSULIN DETEMIR 100 UNITS/ML VIAL SQ SCH (21:00)
[2017-10-20] MEDS ORDERED: ATORVASTATIN 10 MG TAB PO SCH (21:00)
== END 2017-10-20 17:30 | disposition short-term general hospital (02) ==
LOC: NEPC 20:16 → UNDOADMIN 22:05 → NEDA 22:05 → H4EA 10-20 08:25 → UNDODISIN 10-20 17:30 → NEPC 10-20 17:30
PROC: 3E1M39Z Irrigation of Peritoneal Cavity using Dialysate, Percutaneous Approach (ICD-10-PCS; principal; 2017-10-19)
DX: R45.851 Suicidal ideations (principal); M86.9 Osteomyelitis, unspecified; N18.6 End stage renal disease; I12.0 Hypertensive chronic kidney disease with stage 5 chronic kidney disease or end stage renal disease; E11.22 Type 2 diabetes mellitus with diabetic chronic kidney disease; D64.9 Anemia, unspecified; I25.10 Atherosclerotic heart disease of native coronary artery without angina pectoris; E11.51 Type 2 diabetes mellitus with diabetic peripheral angiopathy without gangrene; Z79.4 Long term (current) use of insulin; Z79.82 Long term (current) use of aspirin; Z87.891 Personal history of nicotine dependence; Z89.411 Acquired absence of right great toe; Z99.2 Dependence on renal dialysis
CPT/HCPCS: 80053; 82948; 85025; 90935; 96372; 99285; J1815